=== PATIENT | female | born 2000 | race Two or more races ===

== ENCOUNTER → 2024-06-01 | Emergency (ER) | payer OTHER ==
[~2024-06-01] VITALS: Ht 152.4 cm; Wt 99.8 kg
[~2024-06-01] MED LIST: DICLOFENAC SODI75 MG PO; KETOROLAC TROMETHAMINE 60 MG VIAL IM ONE; NORFLEX100MG PO; ORPHENADRINE CITRATE 30 MG/ML AMPUL IM ONE
[2024-06-01 13:24] VITALS: BP 119/71; O2SAT 99
== END | disposition home or self-care (01) ==
LOC: ER 13:07
DX: S13.4XXA Sprain of ligaments of cervical spine, initial encounter (principal); V49.88XA Car occupant (driver) (passenger) injured in other specified transport accidents, initial encounter; Y93.89 Activity, other specified; Y92.89 Other specified places as the place of occurrence of the external cause; Y99.8 Other external cause status